=== PATIENT | male | born 1980 | race Caucasian/White ===

== ENCOUNTER 2021-01-13 03:30 | Inpatient (IN) | payer MEDICAID, OTHER ==
[~2021-01-13] VITALS: Ht 188 cm; Wt 86.3 kg
[2021-01-13] MEDS ORDERED: ONDANSETRON 2MG/ML, 2ML ONE ×2 (04:21→06:45)
[2021-01-13] MEDS ORDERED: MORPHINE SULFATE 4 MG/ML, 1ML IVPush PRN ×2 (04:30→07:30)
[2021-01-13] MEDS ORDERED: SODIUM CHLORIDE 0.9% 1,000ML IVBOLUS ONE ×2 (04:30→05:30)
[2021-01-13] MEDS ORDERED: ONDANSETRON 2MG/ML, 2ML IVPush ONE (04:30)
[2021-01-13 04:39] LABS: MEAN CORPUSCULAR HEMOGLOBIN 32.2 pg (27.5-34.5); MEAN CORPUSCULAR HGB CONC 35.1 g/dL (33.2-36.2); MEAN PLATELET VOLUME 11.3 fL (7.4-10.4); PLATELET COUNT 180 x10^3/uL (130-400); RED BLOOD COUNT 5.94 x10^6/uL (4.38-5.82); RED CELL DISTRIBUTION WIDTH 13.4 % (9.4-14.8)
[2021-01-13 04:48] LABS: ALBUMIN 3.9 g/dL (3.4-5.0); ANION GAP 11 mmol/L (5-15); CALCIUM 9.7 mg/dL (8.5-10.1); CHLORIDE 98 mmol/L (98-107)
[2021-01-13 04:53] LABS: ALANINE AMINOTRANSFERASE 215 U/L (12-78); ALKALINE PHOSPHATASE 187 U/L (45-117); BILIRUBIN,TOTAL 4.4 mg/dL (0.2-1.0); CREATININE 1.09 mg/dL (0.7-1.3); TOTAL PROTEIN 8.2 g/dL (6.4-8.2); TROPONIN I < 0.015 ng/mL (0.000-0.045)
--- NOTE | 2021-01-13 05:04 | NUR ---
Patient states he has been having n/v, heartburn symptoms for 2 days witht symptoms becoming unbearable today. Patient denies drinking, smoking, and caffiene, states he does smoke marijuana daily, but stopped 2 days ago when he started feeling sick.
--- NOTE | 2021-01-13 05:40 | NUR ---
Report recieved from LEELEE García. This RN to assume care. Patient resting in [facility] with no complaints; nausea resolved. Awaiting imaging results and patient tbadm.
[2021-01-13 05:45] LABS: <RBC MORPHOLOGY> NORMAL; BAND#(MANUAL) 2.33 x10^3/uL; BANDS%(MANUAL) 8 % (0-7); LYMPH#(MANUAL) 1.16 x10^3/uL (1-3.4); LYMPHS% (MANUAL) 4 % (22-44); MONOS#(MANUAL) 1.46 x10^3/uL (0.3-2.7); MONOS% (MANUAL) 5 % (2-9); SEG#(MANUAL) 24.15 x10^3/uL (1.8-6.8); SEGS% (MANUAL) 83 % (42-75)
[2021-01-13 05:46] LABS: <PLATELET ESTIMATE> ADEQUATE
[2021-01-13 05:47] LABS: LARGE PLATELETS 1+
[2021-01-13] MEDS ORDERED: OMNIPAQUE 350 MG/ML, 100ML BOTTLE ONE (06:14)
--- NOTE | 2021-01-13 06:42 | NUR ---
Report from J[facility], pt waiting for admit GI CBD/pancreatitis. No pain, IVF infused. AIDET
[2021-01-13] MEDS ORDERED: MORPHINE SULFATE 4 MG/ML, 1ML ONE ×2 (06:46→07:32)
--- NOTE | 2021-01-13 06:57 | NUR ---
IVF changed per Dr Cobian to LR bolus, medicated verbal ok zofran 4mg IV and morphine 4mg IV per Dr Cobian. Covid swab obtained and walked to lab. VSS, pt updated on NPO status and POC.
[2021-01-13] MEDS ORDERED: LACTATED RINGERS 500 ML IVBOLUS ONE (07:00)
[2021-01-13] MEDS ORDERED: LACTATED RINGERS 1,000 ML IVBOLUS ONE (07:00)
[2021-01-13] MEDS ORDERED: PROMETHAZINE 25 MG/ML, 1ML IM PRN (07:30)
[2021-01-13] MEDS ORDERED: ACETAMINOPHEN 325 MG TABLET PO PRN (07:30)
[2021-01-13] MEDS ORDERED: ONDANSETRON 2MG/ML, 2ML IVPush PRN ×2 (07:30)
[2021-01-13] MEDS ORDERED: DIPHENHYDRAMINE 25 MG CAPSULE PO PRN (07:30)
[2021-01-13] MEDS ORDERED: ENALAPRILAT 1.25 MG/ML, 2ML IVPush PRN (07:30)
[2021-01-13] MEDS ORDERED: ONDANSETRON ODT 4 MG PO PRN (07:30)
[2021-01-13] MEDS ORDERED: OXYcodone IR 5MG TABLET PO PRN (07:30)
[2021-01-13] MEDS ORDERED: DOCUSATE 100 MG CAPSULE PO PRN (07:30)
[2021-01-13] MEDS: PIPERACILLIN/TAZO 3.375 GM in DEXTROSE 5% 50 ML IV SCH ×3 (07:36→19:27)
--- NOTE | 2021-01-13 07:45 | NUR ---
Last of ER LR bolus infused, VSS. Repate morphine admin, now reports pain decrease 09/02. Report to LEELEE Fuller. All belongings sent with pt. NPO status updated with pt, he agrees with POC.
[2021-01-13 08:31] VITALS: BP 122/75
[2021-01-13] MEDS: SODIUM CHLORIDE 0.9% 1,000 ML IV SCH ×3 (09:21→19:28)
[2021-01-13] MEDS ORDERED: POTASSIUM CHLORIDE 40 MEQ in SODIUM CHLORIDE 0.9% 500 ML IV ONE (10:00)
[2021-01-13] MEDS: morphine SULFATE 10 MG/ML, 1ML IVPush PRN ×4 (11:21→21:45)
[2021-01-13 12:56] VITALS: BP 124/76
[2021-01-13 19:45] VITALS: BP 137/79
[2021-01-14] MEDS: morphine SULFATE 10 MG/ML, 1ML IVPush PRN ×2 (00:52→04:58)
[2021-01-14 01:55] VITALS: BP 127/78
[2021-01-14] MEDS: SODIUM CHLORIDE 0.9% 1,000 ML IV SCH ×3 (01:56→19:33)
[2021-01-14] MEDS: PIPERACILLIN/TAZO 3.375 GM in DEXTROSE 5% 50 ML IV SCH ×4 (01:56→19:33)
[2021-01-14] MEDS ORDERED: ONDANSETRON 2MG/ML, 2ML IVPush PRN (02:00)
[2021-01-14 05:36] LABS: ALANINE AMINOTRANSFERASE 104 U/L (12-78); ALBUMIN 2.5 g/dL (3.4-5.0); ANION GAP 5 mmol/L (5-15); CALCIUM 7.8 mg/dL (8.5-10.1); CHLORIDE 106 mmol/L (98-107)
[2021-01-14 05:38] LABS: ALKALINE PHOSPHATASE 107 U/L (45-117); BILIRUBIN,TOTAL 3.2 mg/dL (0.2-1.0); TOTAL PROTEIN 6.2 g/dL (6.4-8.2)
[2021-01-14 06:50] LABS: BASOPHILS % (AUTO) 0 % (0-1); EOSINOPHILS % (AUTO) 0 % (1-7); LYMPHOCYTES % (AUTO) 6 % (22-44); MEAN CORPUSCULAR HEMOGLOBIN 32.1 pg (27.5-34.5); MEAN CORPUSCULAR HGB CONC 34.2 g/dL (33.2-36.2); MEAN PLATELET VOLUME 10.6 fL (7.4-10.4); MONOCYTES % (AUTO) 8 % (2-9); NEUTROPHILS % (AUTO) 85 % (42-75); PLATELET COUNT 133 x10^3/uL (130-400); RED BLOOD COUNT 4.64 x10^6/uL (4.38-5.82); RED CELL DISTRIBUTION WIDTH 13.5 % (9.4-14.8)
[2021-01-14] MEDS: ENOXAPARIN 40 MG/0.4 ML SQ SCH (08:00)
[2021-01-14] MEDS ORDERED: MAGNESIUM SULFATE PMX 2GM/50ML 50 ML IV ONE (08:30)
[2021-01-14 09:08] VITALS: BP 123/72
[2021-01-14] MEDS ORDERED: POTASSIUM CHLORIDE 40 MEQ in SODIUM CHLORIDE 0.9% 500 ML IV ONE (12:00)
[2021-01-14 12:23] VITALS: BP 116/75
[2021-01-14 20:13] VITALS: BP 121/70
[2021-01-15] MEDS: SODIUM CHLORIDE 0.9% 1,000 ML IV SCH ×2 (01:35→07:26)
[2021-01-15] MEDS: PIPERACILLIN/TAZO 3.375 GM in DEXTROSE 5% 50 ML IV SCH ×4 (01:35→19:32)
[2021-01-15 01:38] VITALS: BP 113/66
[2021-01-15 07:41] VITALS: BP 125/68
[2021-01-15] MEDS: ENOXAPARIN 40 MG/0.4 ML SQ SCH (08:00)
[2021-01-15 09:06] LABS: BASOPHILS % (AUTO) 0 % (0-1); EOSINOPHILS % (AUTO) 0 % (1-7); LYMPHOCYTES % (AUTO) 8 % (22-44); MEAN CORPUSCULAR HEMOGLOBIN 31.8 pg (27.5-34.5); MONOCYTES % (AUTO) 12 % (2-9); NEUTROPHILS % (AUTO) 80 % (42-75); PLATELET COUNT 144 x10^3/uL (130-400); RED BLOOD COUNT 4.28 x10^6/uL (4.38-5.82); RED CELL DISTRIBUTION WIDTH 13.6 % (9.4-14.8)
[2021-01-15 09:25] LABS: CHLORIDE 105 mmol/L (98-107)
[2021-01-15 09:29] LABS: CHOL/HDL RATIO 4.4; LDL/HDL RATIO 2.5 (0.5-3.0)
[2021-01-15 09:33] LABS: ALANINE AMINOTRANSFERASE 69 U/L (12-78); ALBUMIN 2.7 g/dL (3.4-5.0); ALKALINE PHOSPHATASE 93 U/L (45-117); ANION GAP 8 mmol/L (5-15); BILIRUBIN,TOTAL 3.1 mg/dL (0.2-1.0); CALCIUM 8.6 mg/dL (8.5-10.1); CREATININE 0.64 mg/dL (0.7-1.3); TOTAL PROTEIN 6.3 g/dL (6.4-8.2)
[2021-01-15] MEDS ORDERED: POTASSIUM CHLORIDE 40 MEQ in SODIUM CHLORIDE 0.9% 500 ML IV ONE (10:00)
[2021-01-15] MEDS ORDERED: CHLORHEXIDINE 15 ML UDC ONE (10:07)
[2021-01-15] MEDS ORDERED: FENTANYL PF 100 MCG/2ML IV PRN (10:30)
[2021-01-15] MEDS ORDERED: LABETALOL 5MG/ML, 20ML IV PRN (10:30)
[2021-01-15] MEDS ORDERED: HALOPERIDOL 5 MG/ML IV PRN (10:30)
[2021-01-15] MEDS ORDERED: HYDROmorphone 1 MG/ML, 1ML INJ IVPush PRN (10:30)
[2021-01-15] MEDS ORDERED: MEPERIDINE/PF 25MG/0.5ML IVPush PRN (10:30)
[2021-01-15] MEDS ORDERED: OXYcodone 5 MG/5 ML ORAL.SOL UDC PO PRN (10:30)
[2021-01-15] MEDS ORDERED: hydrALAzine 20 MG/ML, 1ML IV PRN (10:30)
[2021-01-15] MEDS ORDERED: PROMETHAZINE 25 MG/ML, 1ML IVPush PRN (10:30)
[2021-01-15] MEDS ORDERED: DIPHENHYDRAMINE 50 MG/ML, 1ML IVPush PRN (10:30)
[2021-01-15] MEDS ORDERED: FENTANYL PF 100 MCG/2ML ONE (10:32)
[2021-01-15] MEDS ORDERED: DEXAMETHASONE 4 MG/ML, 1ML ONE ×2 (10:34→15:42)
[2021-01-15] MEDS ORDERED: OMNIPAQUE 350 MG/ML, 50 ML BOTTLE ONE (10:45)
[2021-01-15] MEDS ORDERED: ONDANSETRON 2MG/ML, 2ML ONE (10:51)
[2021-01-15] MEDS ORDERED: PROPOFOL 10 MG/ML, 20ML ONE (10:51)
[2021-01-15] MEDS ORDERED: CEFAZOLIN 1,000 MG ONE (10:51)
[2021-01-15] MEDS ORDERED: NEOSTIGMINE 1 MG/ML, 10ML ONE (10:51)
[2021-01-15] MEDS ORDERED: GLYCOPYRROLATE 0.2MG/1ML, 5ML ONE (10:51)
[2021-01-15] MEDS ORDERED: SUCCINYLCHOLINE 20 MG/ML, 10ML ONE (10:51)
[2021-01-15] MEDS ORDERED: ROCURONIUM 10MG/ML,5ML ONE (10:51)
[2021-01-15 14:39] VITALS: BP 121/71
[2021-01-15 14:57] LABS: CLOSTRIDIUM DIFFICILE ANTIGEN NEGATIVE; CLOSTRIDIUM DIFFICILE TOXIN NEGATIVE (Negative)
[2021-01-15] MEDS ORDERED: POTASSIUM PHOSPHATE 44 MEQ in SODIUM CHLORIDE 0.9% 500 ML IV ONE (15:00)
[2021-01-15] MEDS ORDERED: DIPHENHYDRAMINE 50 MG/ML, 1ML ONE (15:42)
[2021-01-15 19:37] VITALS: BP 121/79
[2021-01-16] MEDS: SODIUM CHLORIDE 0.9% 1,000 ML IV SCH ×3 (01:42→17:40)
[2021-01-16] MEDS: PIPERACILLIN/TAZO 3.375 GM in DEXTROSE 5% 50 ML IV SCH ×3 (01:42→14:22)
[2021-01-16] MEDS ORDERED: CALCIUM CARBONATE 500 MG TAB.CHEW PO PRN (02:00)
[2021-01-16] MEDS ORDERED: FAMOTIDINE 20 MG/2 ML IVPush ONE (02:00)
[2021-01-16] MEDS ORDERED: LOPERAMIDE 1 MG/7.5 ML LIQUID PO PRN (02:00)
[2021-01-16 02:39] VITALS: BP 122/75
[2021-01-16 05:35] LABS: MEAN CORPUSCULAR HEMOGLOBIN 32.1 pg (27.5-34.5); MEAN CORPUSCULAR HGB CONC 34.3 g/dL (33.2-36.2); MEAN PLATELET VOLUME 10.6 fL (7.4-10.4); PLATELET COUNT 145 x10^3/uL (130-400); RED BLOOD COUNT 3.71 x10^6/uL (4.38-5.82); RED CELL DISTRIBUTION WIDTH 13.2 % (9.4-14.8)
[2021-01-16 05:40] LABS: ALBUMIN 2.4 g/dL (3.4-5.0); ANION GAP 7 mmol/L (5-15); CALCIUM 8.4 mg/dL (8.5-10.1); CHLORIDE 108 mmol/L (98-107)
[2021-01-16 05:43] LABS: ALANINE AMINOTRANSFERASE 55 U/L (12-78); ALKALINE PHOSPHATASE 80 U/L (45-117); BILIRUBIN,TOTAL 1.3 mg/dL (0.2-1.0); CREATININE 0.59 mg/dL (0.7-1.3); TOTAL PROTEIN 5.8 g/dL (6.4-8.2)
[2021-01-16 05:59] LABS: BAND#(MANUAL) 0.68 x10^3/uL; BANDS%(MANUAL) 5 % (0-7); LYMPH#(MANUAL) 0.95 x10^3/uL (1-3.4); LYMPHS% (MANUAL) 7 % (22-44); MONOS#(MANUAL) 1.08 x10^3/uL (0.3-2.7); MONOS% (MANUAL) 8 % (2-9); SEGS% (MANUAL) 80 % (42-75)
[2021-01-16 06:00] LABS: <PLATELET ESTIMATE> ADEQUATE; <RBC MORPHOLOGY> NORMAL; LARGE PLATELETS 1+
[2021-01-16] MEDS ORDERED: POTASSIUM CHLORIDE 40 MEQ in SODIUM CHLORIDE 0.9% 500 ML IV ONE (06:30)
[2021-01-16] MEDS ORDERED: EPINEPHRINE 1 MG/ML, 1ML ONE (06:32)
[2021-01-16] MEDS ORDERED: BUPIVACAINE/PF 0.5% ONE (06:32)
[2021-01-16] MEDS: ENOXAPARIN 40 MG/0.4 ML SQ SCH (07:37)
[2021-01-16 10:00] VITALS: BP 123/72
[2021-01-16 14:28] VITALS: BP 127/74
[2021-01-16] MEDS ORDERED: CHLORHEXIDINE 15 ML UDC PO ONE (14:30)
[2021-01-16] MEDS ORDERED: FENTANYL PF 250 MCG/5ML ONE (15:23)
[2021-01-16] MEDS ORDERED: MIDAZOLAM 1 MG/ML, 2ML ONE (15:23)
[2021-01-16] MEDS ORDERED: ONDANSETRON 2MG/ML, 2ML ONE (15:42)
[2021-01-16] MEDS ORDERED: SUCCINYLCHOLINE 20 MG/ML, 10ML ONE (15:42)
[2021-01-16] MEDS ORDERED: SUGAMMADEX 200 MG/2 ML IVPush ONE (15:42)
[2021-01-16] MEDS ORDERED: CEFAZOLIN 1,000 MG ONE (15:42)
[2021-01-16] MEDS ORDERED: KETOROLAC 30 MG/1 ML ONE (15:42)
[2021-01-16] MEDS ORDERED: PROPOFOL 10 MG/ML, 20ML ONE (15:42)
[2021-01-16] MEDS ORDERED: ROCURONIUM 10 MG/ML,10ML ONE ×2 (15:42)
[2021-01-16] MEDS ORDERED: PROMETHAZINE 25 MG/ML, 1ML IV PRN (17:00)
[2021-01-16] MEDS ORDERED: ONDANSETRON 2MG/ML, 2ML IVPush PRN (17:00)
[2021-01-16] MEDS ORDERED: hydrALAzine 20 MG/ML, 1ML IV PRN (17:00)
[2021-01-16] MEDS ORDERED: FENTANYL PF 100 MCG/2ML IV PRN (17:00)
[2021-01-16] MEDS ORDERED: DIAZEPAM 5 MG/ML, 2ML IV PRN ×2 (17:00)
[2021-01-16] MEDS ORDERED: ALBUTEROL SULFATE 2.5 MG/3 ML NPPB PRN (17:00)
[2021-01-16] MEDS ORDERED: LABETALOL 5MG/ML, 20ML IV PRN (17:00)
[2021-01-16] MEDS ORDERED: OXYcodone 5 MG/5 ML ORAL.SOL UDC PO PRN (17:00)
[2021-01-16] MEDS ORDERED: METOCLOPRAMIDE 5 MG/ML, 2ML IV PRN (17:00)
[2021-01-16] MEDS ORDERED: KETOROLAC 30 MG/1 ML IV PRN (17:00)
[2021-01-16] MEDS ORDERED: HYDROmorphone 1 MG/ML, 1ML INJ IV PRN (17:00)
[2021-01-16] MEDS ORDERED: MEPERIDINE/PF 25MG/0.5ML IVPush PRN (17:00)
[2021-01-16 20:32] VITALS: BP 126/74
== END 2021-01-16 20:40 | disposition home or self-care (01) | DRG 853 ==
LOC: ED 05:56 → EDIP 07:12 → 3N 08:23 → 4NE 01-16 17:57
PROVIDERS: ADMIT Hospitalist; ATTEND Family Medicine
PROC: 0FC98ZZ Extirpation of Matter from Common Bile Duct, Via Natural or Artificial Opening Endoscopic (ICD-10-PCS; 2021-01-15)
PROC: BF131ZZ Fluoroscopy of Gallbladder and Bile Ducts using Low Osmolar Contrast (ICD-10-PCS; 2021-01-15)
PROC: 0FT44ZZ Resection of Gallbladder, Percutaneous Endoscopic Approach (ICD-10-PCS; principal; 2021-01-16 15:30)
DX: A41.9 Sepsis, unspecified organism (principal); K65.9 Peritonitis, unspecified; K85.11 Biliary acute pancreatitis with uninfected necrosis; K80.61 Calculus of gallbladder and bile duct with cholecystitis, unspecified, with obstruction; D75.1 Secondary polycythemia; E83.42 Hypomagnesemia; E86.0 Dehydration; E87.6 Hypokalemia; E88.09 Other disorders of plasma-protein metabolism, not elsewhere classified; F12.90 Cannabis use, unspecified, uncomplicated; J45.909 Unspecified asthma, uncomplicated; K21.9 Gastro-esophageal reflux disease without esophagitis; Z20.822 Contact with and (suspected) exposure to COVID-19; R65.20 Severe sepsis without septic shock
CPT/HCPCS: 36415; 76000; 99291; S0020; 71045; 74177; 76700; 80053; 80061; 82150; 83690; 83735; 84100; 84484; 85025; 87040; 87324; 87635; 88304; 93005; G0378; J0171; J0690; J1100; J1885; J2250; J2405; J2543; J2704; J2710; J3010; J3480; J7120; Q0162; Q9967; C1769; J0330; J1200; J2270; J3475; J7030; J7040